=== PATIENT | female | born 1970 | race Asian ===

== ENCOUNTER 2018-12-08 11:16 | Emergency (ER) | payer SELFPAY ==
--- NOTE | 2018-12-08 11:28 | Emergency Department Report ---
Blank Doc - Documentation Documentation: This is a 48-year-old female that presents with lower back pain after heavy li fting. Denies any injuries or urinary symptoms. This initial assessment/diagnostic orders/clinical plan/treatment(s) is/are subject to change based on patient's health status, clinical progression and re- assessment by fellow clinical providers in the ED. Further treatment and workup at subsequent clinical providers discretion. Patient/guardians urged not to elope from the ED as their condition may be serious if not clinically assessed and managed. Initial orders include: 1- Patient sent to [facility] for further evaluation and treatment
[2018-12-08 11:29] VITALS: BP 172/103
[2018-12-08] MEDS ORDERED: IBUPROFEN PO ONE (12:11)
[2018-12-08] MEDS ORDERED: ULTRAM PO ONE (12:11)
--- NOTE | 2018-12-08 12:36 | XRay Report ---
LUMBAR SPINE 3 VIEWS INDICATION / CLINICAL INFORMATION: pain. COMPARISON: None available. FINDINGS: VERTEBRAE: No acute fracture. No significant malalignment. DISC SPACES / FACET JOINTS:No significant abnormality. PARASPINAL SOFT TISSUES:No significant abnormality. ADDITIONAL FINDINGS: None. Signer Name: Liane Lopez MD Signed: 12/08/2018 12:32 PM Workstation Name: [id number]
--- NOTE | 2018-12-08 12:56 | Emergency Department Report ---
ED Back Pain/Injury HPI - General Chief Complaint: Back Pain/Injury Stated Complaint: LEG PAIN Time Seen by Provider: 12/08/18 11:27 Source: patient Limitations: No Limitations - History of Present Illness Complaint: back pain, back injury -: week(s) (1) Similar Symptoms Previously: No Place: work Radiation: right leg Severity scale (0 -10): 8 Quality: sharp, aching Consistency: constant Improves With: none Worsens With: movement, walking Context: while lifting (patient was lifting a heavy pot at work and had sudden pain, pain worsening) Associated Symptoms: denies other symptoms. denies: incontinence - Related Data Previous Rx's Medication Instructions Recorded Last Taken Type Ibuprofen [Motrin 600 MG tab] 600 mg PO Q8H PRN #20 tablet 12/08/18 Unknown Rx methOCARBAMOL [Robaxin TAB] 500 mg PO Q6H PRN #14 tablet 12/08/18 Unknown Rx traMADol [Ultram] 50 mg PO Q6HR PRN #12 tablet 12/08/18 Unknown Rx Allergies Allergy/AdvReac Type Severity Reaction Status Date / Time No Known Allergies Allergy Unverified 12/08/18 11:29 ED Review of Systems ROS: Stated complaint: LEG PAIN Other details as noted in HPI Comment: All other systems reviewed and negative ED Back Pain Physical Exam - Exam General: Vital signs noted. No distress. Alert and acting appropriately. Back/Abdomen: Yes Perilumbar Tenderness (pain in midline at the mid lumbar spine and perilumbar to the right), No Abdominal Tenderness, No Perithoracic Tenderness, No Sacroiliac Tenderness, No Flank Tenderness, No Straight Leg Raise Pain Neuro: Yes Normal Sensation, No Motor Weakness, No Normal Gait ED Course Vital Signs 12/08/18 11:27 Temperature 98.1 F Pulse Rate 87 Respiratory 18 Rate Blood Pressure 172/103 O2 Sat by Pulse 98 Oximetry ED Medical Decision Making - Radiology Data [facility] [address] [place] [address] XRay Report Signed Patient: ALISE RUTH MR#: [id number] : 1970 Acct:[id number] Age/Sex: 48 / F ADM Date: 12/08/18 Loc: ED Attending Dr: Ordering Physician: SHAKA ROYAL MD Date of Service: 12/08/18 Procedure(s): XR spine lumbosacral 2-3V Accession Number(s): [id number] cc: SHAKA ROYAL MD Fluoro Time In Minutes: LUMBAR SPINE 3 VIEWS INDICATION / CLINICAL INFORMATION: pain. COMPARISON: None available. FINDINGS: VERTEBRAE: No acute fracture. No significant malalignment. DISC SPACES / FACET JOINTS:No significant abnormality. PARASPINAL SOFT TISSUES:No significant abnormality. ADDITIONAL FINDINGS: None. Signer Name: Liane Lopez MD Signed: 12/08/2018 12:32 PM Workstation Name: [id number] Transcribed By: DT Dictated By: Aldo Lopez MD Electronically Authenticated By: lAdo Lopez MD Signed Date/Time: 12/08/18 1232 - Medical Decision Making Patient's had x-rays because of her midline tenderness. X-rays are negative for compression fracture. Patient to be discharged home with follow-up with orthopedics. Patient given meds for symptomatic relief. Critical care attestation.: If time is entered above; I have spent that time in minutes in the direct care of this critically ill patient, excluding procedure time. ED Disposition Clinical Impression: Lumbar strain Qualifiers: Encounter type: initial encounter Qualified Code(s): S39.012A - Strain of muscle, fascia and tendon of lower back, initial encounter Disposition: -01 TO HOME OR SELFCARE Is pt being admited?: No Does the pt Need Aspirin: No Condition: Stable Instructions: Low Back Strain (ED) Referrals: THOMAS BERNSTEIN MD [Staff Physician] - as needed Time of Disposition: 12:57
== END 2018-12-08 13:25 | disposition home or self-care (01) ==
LOC: ED 11:16
DX: S39.012A Strain of muscle, fascia and tendon of lower back, initial encounter (principal); Z79.899 Other long term (current) drug therapy; X50.0XXA Overexertion from strenuous movement or load, initial encounter; Y93.89 Activity, other specified; Y92.89 Other specified places as the place of occurrence of the external cause; Y99.8 Other external cause status
CPT/HCPCS: 72100